=== PATIENT | male | born 1985 | race Asian ===

== ENCOUNTER 2018-05-21 12:24 | Emergency (ER) | payer OTHER, MEDICAID ==
[~2018-05-21] VITALS: Ht 167.6 cm; Wt 84.1 kg
[2018-05-21 12:32] VITALS: BP 138/84
[2018-05-21] MEDS ORDERED: KETOROLAC TROMETHAMINE 10 MG TABLET PO ONE (15:00)
[2018-05-21] MEDS ORDERED: METHOCARBAMOL 500 MG TABLET PO ONE (15:00)
== END 2018-05-21 16:00 | disposition home or self-care (01) ==
LOC: EMS 12:26
DX: S16.1XXA Strain of muscle, fascia and tendon at neck level, initial encounter (principal); M54.6 Pain in thoracic spine; V49.40XA Driver injured in collision with unspecified motor vehicles in traffic accident, initial encounter; Y93.89 Activity, other specified; Y92.89 Other specified places as the place of occurrence of the external cause; Y99.8 Other external cause status